=== PATIENT | male | born 2000 | race Caucasian/White ===

== ENCOUNTER 2023-05-15 09:33 | Emergency (ER) | payer SELFPAY ==
[2023-05-15 11:42] LABS: Influenza A by NAA Not Detected (NotDetected); Influenza B by NAA Not Detected (NotDetected); SARS-CoV-2 NAA Rapid Test Not Detected (NotDetected)
== END 2023-05-15 10:25 | disposition home or self-care (01) ==
LOC: CSHERS 09:33
DX: J02.9 Acute pharyngitis, unspecified (principal)
CPT/HCPCS: 99283